=== PATIENT | female | born 1950 | race Caucasian/White ===

== ENCOUNTER 2020-11-14 15:20 | Outpatient (CLI) | payer MEDICARE, BC, SELFPAY ==
--- NOTE | ~2020-11-14 | US_ITS ---
US venous doppler [facility] DATE: 11/14/2020 16:15 INDICATION: Right ankle and foot swelling, erythema, numbness TECHNIQUE: Real-time and color flow imaging and Doppler analysis of the veins of the lower extremitie s COMPARISON: 03/23/2019 venous duplex examination of the lower extremities FINDINGS: The greater saphenous veins are patent. There is spontaneous and phasic flow and normal aug mentation and color flow signal and normal compression of the deep veins of both lower extremities, w ithout evidence of deep venous thrombosis. IMPRESSION: Negative examination; no evidence of deep venous thrombosis of the lower extremities Reviewed, dictated and finalized at Location A. Reviewed, dictated and finalized at location A.
== END 2020-11-14 15:21 | disposition home or self-care (01) ==
PROVIDERS: PCP Family Medicine
DX: I87.2 Venous insufficiency (chronic) (peripheral) (principal); M79.89 Other specified soft tissue disorders
CPT/HCPCS: 93970

== ENCOUNTER 2020-12-04 08:25 | Outpatient (CLI) | payer MEDICARE, BC, SELFPAY ==
--- NOTE | ~2020-12-04 | US_ITS ---
EXAMINATION: US art doppler w press LE BI DATE: 12/04/2020 09:46 CDT INDICATION: Skin changes. Venous insufficiency. TECHNIQUE: Segmental pressures and plethysmographic and Doppler waveforms of the brachial and lower e xtremity arteries were obtained. COMPARISON: None. FINDINGS: Right and left brachial artery pressures of 144 mm Hg and 156 mm Hg, respectively, are concordant (no rmal difference <= 30 mmHg). The right high-thigh pressure index is 1.07 (normal > 1.2). The right ankle-brachial index (HANDY) is 1 .1 (normal >= 0.9-1.0). The right great toe-brachial index (TBI) is 0.59 (normal >= 0.60). The right lower extremity segmental pressure gradients are increased below the ankle (normal gradients <= 20-30 mmHg between adjacent levels on the same leg or the same levels on the two legs). Arterial Doppler w aveforms are biphasic. The left high-thigh pressure index is 1.03. The left HANDY is 1.12. The left TBI is 0.71. The left lowe r extremity segmental pressure gradients are normal. Arterial Doppler waveforms are biphasic. IMPRESSION: 1. Normal bilateral ankle and left toe brachial indices. 2: Mildly diminished right toe brachial index measuring 0.59, consistent with mild peripheral arteria l disease. Reviewed, dictated and finalized at location B. IMPRESSION: 1. Normal bilateral ankle and left toe brachial indices. 2: Mildly diminished right toe brachial index measuring 0.59, consistent with m ild peripheral arterial disease.
== END 2020-12-04 08:26 | disposition home or self-care (01) ==
PROVIDERS: PCP Family Medicine; Visit Provider Nurse Practitioner Family
DX: R23.8 Other skin changes (principal); M79.89 Other specified soft tissue disorders; R20.2 Paresthesia of skin
CPT/HCPCS: 93923

== ENCOUNTER 2021-02-14 10:54 | Outpatient (CLI) | payer MEDICARE, BC, SELFPAY ==
--- NOTE | ~2021-02-14 | XR_ITS ---
EXAMINATION: XR wrist LT w scaphoid EXAM DATE: 02/14/2021 11:12 INDICATION: M25.532 - Pain in left wrist after fall, initial encounter. TECHNIQUE: Left wrist frontal, frontal with ulnar deviation, oblique and lateral projections obtained and reviewed. There is no prior study for comparison. FINDINGS: There is acute closed posttraumatic nondisplaced fracture through the radial styloid extend ing into the radiocarpal joint. This finding has been indicated, marked on the examination for review , clinical correlation. There is overlying soft tissue swelling. Carpal bones are unremarkable. There is moderate left 1st carpometacarpal joint primary osteoarthritis. IMPRESSION: Acute nondisplaced left radial styloid intra-articular fracture. Reviewed, dictated and finalized at location B.
== END 2021-02-14 10:55 | disposition home or self-care (01) ==
LOC: ANHIMG 10:59
PROVIDERS: PCP Physician Assistant; Visit Provider Physician Assistant
DX: M25.532 Pain in left wrist (principal); S52.515A Nondisplaced fracture of left radial styloid process, initial encounter for closed fracture
CPT/HCPCS: 73110

== ENCOUNTER 2023-03-05 14:48 | Outpatient (CLI) | payer MEDICARE, BC, SELFPAY ==
[2023-03-05 15:07] LABS: Basophils Absolute Auto 0.1 K/mm3 (0.0-0.1); Basophils Percent Auto 1.1 % (0.2-1.2); Eosinophils Absolute Auto 0.4 K/mm3 (0-0.3); Eosinophils Percent Auto 4.9 % (0-4.4); Hematocrit 39.3 % (37.0-47.0); Hemoglobin 12.6 g/dL (12.0-15.0); Immature Granulocyte Absolute 0.04 K/mm3 (0.00-0.031); Immature Granulocyte Percent A 0.5 % (0-0.5); Lymphocytes Absolute Auto 1.37 K/mm3 (0.9-3.2); Lymphocytes Percent Auto 16.3 % (18.3-44.2); Mean Corpuscular HGB Conc 32.1 g/dl (32-36); Mean Corpuscular Hemoglobin 28.3 pg (26-34); Mean Corpuscular Volume 88.3 fl (80-100); Mean Platelet Volume 9.6 fl (7.4-10.4); Monocytes Absolute Auto 0.7 K/mm3 (0.1-0.6); Monocytes Percent Auto 8.3 % (2.6-8.5); Neutrophils Absolute Auto 5.8 K/mm3 (1.3-6.7); Neutrophils Percent Auto 68.9 % (45.5-73.1); Platelet Count Result 221 k/mm3 (150-375); Red Blood Count 4.45 M/mm3 (4.2-5.4); Red Cell Distribution Width 13.4 % (11.5-14.5); White Blood Count 8.4 K/mm3 (4.5-10.0)
[2023-03-05 15:15] LABS: Alanine Aminotransferase 18 U/L (6-35); Alkaline Phosphatase 36 U/L (38-126); Anion Gap 4 mmol/L (8-16); Aspartate Amino Transferase 27 U/L (14-36); Bilirubin,Total 0.4 mg/dL (0.2-1.3); Blood Urea Nitrogen 21 mg/dL (7-17); Calcium 8.7 mg/dL (8.4-10.2); Carbon Dioxide 31 mmol/L (22-30); Chloride 96 mmol/L (98-107); Estimated Glomerular Filt Rate > 60; Glucose 93 mg/dL (65-110); Potassium 3.9 mmol/L (3.4-5.0); Sodium 131 mmol/L (137-145)
[2023-03-05 15:39] LABS: SARS-CoV-2 RNA PCR Negative (Negative)
== END 2023-03-05 14:49 | disposition home or self-care (01) ==
PROVIDERS: PCP Family Medicine; Visit Provider Physician Assistant
DX: R10.9 Unspecified abdominal pain (principal); R63.0 Anorexia; R53.83 Other fatigue; Z20.822 Contact with and (suspected) exposure to COVID-19
CPT/HCPCS: 36415; 80053; 85025; 87635

== ENCOUNTER 2025-02-20 13:42 | Outpatient (CLI) | payer MEDICARE, BC, SELFPAY ==
--- OUTSIDE RECORDS SUMMARY | 2025-02-20 15:15 | XMS_ITS | Patient Health Record ---
Author Organization [facility] Address [address] [place] [address] Support Name Relationship Address Phone Unavailable Emergency Contact Unknown Unavailabl e Henrry Germain Guarantor Unknown [phone] Reason For Referral No Information Medications Medication SIG (Take, Route, Frequency, Duration) Notes Start Date End Date Status Synthroid Active Plan Of Treatment Pending Test Test Name Order Date IQecg 07/29/2017 Zofran ODT 8mg 07/29/2017 Insurance Providers Payer Name Payer Address Payer Phone Subscriber Number Group Number Insured Name Patient Relationship to Insured Coverage Start Date Coverage End Date MEDICARE /[facility] [address] [place] [phone] [id number] Henrry Germain Self - patient is the insured [facility] [address] [address] [place], [place] [id number] Henrry Germain Self - patient is the insured Medical (General) History Surgical History Surgery Date(Month/Year) Scoliosis surgery 2005 Hospitalization History Reason Date(Month/Year) see above
--- OUTSIDE RECORDS SUMMARY | 2025-02-20 15:15 | XMS_ITS | Clinical Summary ---
Author Organization [facility] Address [address] [place] [address] Care Team Providers Care Transfer Agent Name Role Phone Malgorzata Baez MD Unavailable [phone] Unknown, Notinfile Primary Care Provider Unavail able Allergies Active Allergy Reactions Criticality Noted Date Comments Nirmatrelvir-Ritonavir Hives,Itching,Tomi h, Other (See comments) Medium 01/27/2022 Other reaction(s): Hives 3 or more Nitrofurantoin Monohyd/M-Cryst Nausea only High 10/01/2020 Penicillins Swelling,Rash,Other (See comments) Medium 07/02/2014 Mild swelling to arm and legs Trazodone Shortness of breath High 07/16/2022 Medications atorvastatin (LIPITOR) 10 mg tablet Take 1 tablet (10 mg total) by mouth as needed 5 Active denosumab (Prolia) 60 mg/mL syringe Inject 1 mL (60 mg total) under the skin every 6 (six) months 02/05/23 last dose Active traMADoL (ULTRAM) 50 mg tablet Take 1 tablet (50 mg total) by mouth every 6 (six) hours as needed for pain For mild/moderate pain 42 tablet 3 Active clobetasoL (TEMOVATE) 0.05 % creamIndications :Contact Dermatitis Apply 1 Application topically as needed DO NOT APPLY TO LEFT HIP SURGICAL INCISION. 30 g 3 Active diclofenac sodium (VOLTAREN) 1 % gel Apply 2 g topically as needed DO NOT APPLY TO LEFT HIP SURGICAL INCISION. 3 Active levothyroxine (SYNTHROID) 75 mcg tablet 3 Active cholecalciferol (Vitamin D3) 1,000 unit capsule Take 1 capsule (1,000 Units total) by mouth daily Active pregabalin (LYRICA) 50 mg capsuleIndicatio ns:Pain of right lower extremity,Fusion of spine of lumbar region,Scoliosis , unspecified scoliosis type, unspecified spinal region Take 1 cap by mouth daily as needed 90 capsule 1 4 Active baclofen (LIORESAL) 10 mg tablet Take 1 tablet (10 mg total) by mouth nightly as needed (headache/neck pain) 90 tablet 4 Active Active Problems Problem Noted Date Diagnosed Date Cervicogenic headache 10/19/2023 Chronic hyponatremia 03/12/2023 Arthritis of left hip 03/11/2023 Primary osteoarthritis of left hip 11/12/2022 Hypothyroidism 10/19/2018 Osteoarthritis of carpometacarpal (CMC) joint of thumb 10/19/2018 High cholesterol 10/19/2018 Senile osteoporosis 10/19/2018 Sciatica 07/26/2018 Chronic low back pain 03/02/2016 Scoliosis 09/07/2013 Resolved Problems Problem Noted Date Diagnosed Date Resolved Date Abscess involving suture 01/24/2019 Single major depressive epis ode, in full remission 10/19/2018 02/09/2022 Smoker 10/19/2018 02/09/2022 H/O scoliosis 07/26/2018 02/09/2022 Pain of right hip joint 07/26/2018 08/02/2022 Primary osteoarthritis of right hip 07/26/2018 02/09/2022 Trochanteric bursitis of right hip 07/26/2018 02/09/2022 Iliac bone pain 08/25/2017 02/09/2022 Immunizations Immunization Administration Dates Next Due Influenza Virus Vaccine Trivalent Mdv 2019 ,04/12/2017 Influenza, Quadrivalent, Spl it, Intramuscular 02/15/2017 Influenza, Trivalent, High D ose, Split, Preservative Free, Intramuscular 04/17/2018,03/28/2016 Influenza, Unspecified 02/26/2021,03/18/2020,06/2016 Pneumococcal Conjugate PCV 13 05/14/2016 Pneumococcal Polysaccharide PPV23 05/27/2017 Surgical History Surgery Date Site/Laterality Comments TONSILLECTOMY ANKLE FRACTURE SURGERY Left SPINAL FUSION Fused C3-S1 due to scoliosis (verified cervical vertebra 3) OTHER STRABISMUS SURGERY 08/12/2017 - 09/11/2017 screws removed from back TOTAL HIP ARTHROPLASTY Right Medical History Medical History Date Comments Osteoporosis Scoliosis Hypothyroidism Alcohol use disorder sober x 38 years Family History Medical History Relation Name Comments Scoliosis Cousin Heart disease Father Hypertension Father Alcohol abuse Maternal Grandfather Heart disease Mother Hypertension Mother Stroke Mother Alcohol abuse Other 1 Scoliosis Other 2 Alcohol abuse Sister 1 Scoliosis Sister 2 Relation Name Status Comments Cousin Father Maternal Grandfather Mother Other 1 Other 2 Sister 1 Sister 2 Social History Tobacco Use Types Packs/Day Years Used Date Smoking Tobacco: Former Cigarettes 0.1 30 1 2014 Smokeless Tobacco: Never Alcohol Use Standard Drinks/Week Comments Not Currently 0 (1 standard drink = 0.6 oz pur e alcohol) AUDIT-C Answer Date Recorded Q1: How often do you have a drink containing alc ohol? Never 10/19/2023 Average Number of Drinks Not on file 024 Frequency of Binge Drinking Not on file 12/2023 PHQ-2 Answer Date Recorded PHQ-2 Total Score (If total score is 3 or more points, staff should administer the PHQ-9) 0 02/09/2022 Personal Safety Answer Date Recorded Have you ever been in or are you currently in a harmful physical or emotional relationship or is someone making you feel afraid or unsafe? 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 [employer] Gender Identity Not on file Sexual Orientation Not on file Obstetrics History Last Filed Vital Signs Vital Sign Reading Time Taken Comments Blood Pressure 126/77 10/19/2023 10:48 AM CDT Pulse 66 10/19/2023 10:48 AM CDT Temperature 36.9 C (98.5 F) 10/19/2023 10:48 AM CDT Respiratory Rate 18 03/12/2023 7:40 AM CDT Oxygen Saturation 100% 03/12/2023 8:30 AM CDT Inhaled Oxygen Concentration - - Weight 45.8 kg (101 lb) 10/19/2023 10:48 AM CDT Height 160 cm (5' 3) 10/19/2023 10:48 AM CDT Body Mass Index 17.89 10/19/2023 10:48 AM CDT Plan of Treatment Health Maintenance Due Date Last Done Comments Hepatitis C Screening 1950 DTaP/Tdap/Td Vaccine (1 - Tdap) 1959 Hepatitis B Screening 1966 Zoster Vaccine (1 of 2) 1998 Well Visit 65+ 2013 Covid-19 Vaccine (3 - Pfizer risk series) 08/21/2020 07/24/2020, 07/03/2020 Osteoporosis Screening-Bone Density Scan 07/15/2022 07/15/2020, 12/09/2018, 05/13/2017 Depression Screening 02/09/2023 02/09/2022 Fall Risk Assessment 03/12/2024 03/12/2023, 02/10/20 Influenza Vaccine (#1) 2025 , 03/18/2020, 2019, Additional history exists Pneumococcal vaccine 65+ Completed 05/27/2017, 06/2015 Breast Cancer Screening-Mammogram Discontinued 06/26/2022, 05/14/2021, 05/14/2021, Additional history exists Medical Devices Implanted Type Area Biometry Teacher Device Identifier Shelf Expiration Date Model / Serial / Lot [employer] Actis Collar Hip 4 High Offset Stem Femoral [id number] - Sna - [id number] Implanted:Qty: 1 on 03/11/2023 by Rustam Rouse MD at [facility] Other - see comments Left: Hip [employer] [id number] 07/14/2032 [id number] / NA / [id number] Description:Implant Pause Pe rformed [employer] Articul/[place] 28mm Cementless Hip +1.5mm 05/27 Taper Head Femoral Latex Free [id number] - Sna - [id number] Implanted:Qty: 1 on 03/11/2023 by Rustam Rouse MD at [facility] Other - see comments Left: Hip [employer] [id number] 12/12/2027 [id number] / NA / [id number] Description:Implant Pause Pe rformed [employer] Cup Acetabular Bi Mentum Od49mm Femoral Proximal Press Fit [id number] - Sna - [id number] Implanted:Qty: 1 on 03/11/2023 by Rustam Rouse MD at [facility] Other - see comments Left: Hip [employer] [id number] 11/12/2027 [id number] / NA / [id number] Description:Implant Pause Pe rformed [employer] Liner Acet Hip Size 28 Poly Bi Mentum Altrx 49mm [id number] - Sna - [id number] Implanted:Qty: 1 on 03/11/2023 by Rustam Rouse MD at [facility] Other - see comments Left: Hip [employer] [id number] 01/11/2027 [id number] / NA / [id number] Description:Implant Pause Pe rformed [employer] [id number] 38mm Modular 2 Mobility Hip D Liner Acetabular - [id number] Implanted:Qty: 1 on 12/27/2018 by Renaldo Canales MD at [facility] Right: Hip [employer] [id number] 04/12/2023 [id number] / / [id number] [employer] 502-03-52d 52mm Primary Hemispherical Cluster Hole D Shell Acetabular - [id number] Implanted:Qty: 1 on 12/27/2018 by Renaldo Canales MD at [facility] Right: Hip [employer] [id number] 04/27/2021 502-03-52D / / [id number] [employer] [id number] Torx 6.5mm 25mm Acetabular Cancellous Screw Bone Titanium - [id number] Implanted:Qty: 1 on 12/27/2018 by Renaldo Canales MD at [facility] Right: Hip [employer] [id number] 07/26/[id number] / / [id number] [employer] [id number] Torx 6.5mm 25mm Acetabular Cancellous Screw Bone Titanium - [id number] Implanted:Qty: 1 on 12/27/2018 by Renaldo Canales MD at [facility] Right: Hip [employer] [id number] 07/26/2023 5935-0309-1 / / [id number] [employer] [id number] Mdm Adm 22.2mm Hip 38d Insert Acetabular X3 Cocr Polyethylene - [id number] Implanted:Qty: 1 on 12/27/2018 by Renaldo Canales MD at [facility] Right: Hip [employer] [id number] 03/16/2023 [id number] / / [id number] [employer]Or tho [id number] 22mm Tapered Hip +0mm 12/14 Head Femoral Oxinium - [id number] Implanted:Qty: 1 on 12/27/2018 by Renaldo Canales MD at [facility] Right: Hip [employer]/ Ortho [id number] 02/27/2027 [id number] / / [id number] [employer]/Or tho [id number] Synergy 13mm 155mm Standard Offset Hip Stem Femoral Titanium - [id number] Implanted:Qty: 1 on 12/27/2018 by Renaldo Canales MD at [facility] Right: Hip [employer]/ Ortho [id number] 03/10/2026 [id number] / / [id number] Procedures Procedure Name Priority Date/Time Associated Diagnosis Comments MAMMOGRAPHY Routine 05/14/2021 DEXA AXIAL SKELETON BONE DENSITY 1 OR MORE SITES Schedule Routine, Read Routine (OP Routine) 12/09/2018 10:56 AM CDT Other specified disorders of bone density and structure, multiple sites Scoliosis, unspecified scoliosis type, unspecified spinal region from Last 3 Months or Most Recently Relevant to Health Maintenance Results * MAMMOGRAPHY (05/14/2021) Mammography Normal Comment:care everywhere 05/14/2021 us Historical Provider HEALTH MAINTENANCE Final Result * Dexa Axial Skeleton Bone Density 1 or 2 Site (12/09/2018 10:56 AM CDT) Anatomical Region Laterality Modality Body N/A Radiographic Luz ging Narrative 12/09/2018 2:39 PM CDT Patient Name: Henrry Germain Date of : 1950 Date of scan: 12/09/2018 Bone mineral density was performed on a [employer] Densitometer. Machine Cross-calibration and Precision studies have been performed with a least significant change of 0.024 g/cm at the spine, 0.020 g/cm at the total proximal femur, and 0.014g/cm at the forearm. HISTORY: This is a 68 y.o. postmenopausal female with a history of osteoporosis thyroid disease and spinal fusion. Currently on treatment with calcium, thyroid hormone, vitamin D. Previously treated with anticoagulants, Forteo, Fosamax, hormone replacement therapy and Prolia. History of tobacco use: Social History Tobacco Use Smoking Status Former Smoker INDICATIONS: Menopause status and history of osteoporosis. FINDINGS: BONE MINERAL DENSITY OF THE PROXIMAL FEMUR Bone Mineral Density (BMD) of the left hip total was found to be 0.633 gm/cm2. This corresponds to a T-score standard deviations from the mean of young adults of -2.5. Femoral neck is 0.598 gm/cm2 with a T-score of -2.3. There is no previous study available for comparison. BONE MINERAL DENSITY OF THE FOREARM Bone Mineral density (BMD) of the left proximal 1/3 of the radius measures 0.633gm/cm2. This corresponds to a T-score standard deviations from the mean of young adults of -1.0. There is no previous study available for comparison. A forearm bone density study was performed due to history of spinal surgery with surgical hardware present. SUMMARY: Bone mineral density shows evidence of osteoporosis and marked increase risk of fracture. ADDITIONAL COMMENTS: If the patient has a history of a fragility fracture, a fracture that occurred with trauma equivalent to a fall from a standing position or less, then the diagnosis is osteoporosis. The risk of osteoporotic fracture increases approximately 2-fold for each 1.0 SD decrease in T-score. However, low bone density is not the only risk factor for fracture. Other factors include patient s age, previous osteoporotic fracture or prior fracture as an adult, loss of height of greater than 2 inches, corticosteroid use, risk of falling, risk of injury, and family history of osteoporosis. Not everyone with low bone mineral density has osteoporosis. Osteomalacia and other metabolic bone disorders should also be considered where indicated. Patients who have osteoporosis should be evaluated for specific diseases and conditions (secondary causes) that may cause or contribute to bone loss. Consider repeating this study in 1-2 years to assess the patient s response to treatment, if applicable. It is recommended that any follow up exam be performed on the same machine if possible for better accuracy. DEFINITIONS: Osteoporosis: BMD at or below -2.5 T-score Osteopenia (low bone mass): BMD between -1.0 and-2.5 T-score. The Bone Health Program adopts the following WHO definitions: Osteoporosis: BMD below -2.5 S.D. as compared to the BMD of young normal adults. Osteopenia or Low Bone Mass: BMD between -1.0 and -2.5 S.D. below the BMD of young normal adults. Normal Bone Density: BMD equal to or greater than -1.0 S.D. as compared to the BMD of young normal adults. References: 1) Ross, Annals of Internal Medicine 114(11): 919-923 (1990) 2) Knight, Lancet 341 : 72-75 (1992) 3) Black, Journal Bone and Mineral Research 7(6): 633-8 (1991) 4) Darby, Journal Bone and Mineral Research 8(10):1227-33 (1992) The history and data sections of the bone mineral density scan were prepared by RT Shorty who is accredited by the International Society of Clinical Densitometry. The overall patient assessment and scan interpretation were performed by Marcela Darby M.D. who is certified by the International Society of Clinical Densitometry. 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
--- NOTE | 2025-03-07 11:59 | WPDHOLTEREM ---
Holter/Event Monitor Holter/Event Monitor Date of procedure: 02/20/25 Holter/Event Procedure: 3-7 Day Holter Monitor Indications: Cardiac arrhythmia Conclusion: 1. 5 days holter monitor on 02/20/25. 2. Predominant rhythm is sinus rhythm. HR range 43-182 bpm; average HR 64 bpm. HR at 43 bpm was on 02/21/25 at 4:15 am. 3. There are frequent premature supraventricular complexes with total burden of 20.7%, occasional supraventricular couplets, and rare supraventricular triplets. There are 13 episodes of supraventricular tachycardia with fastest at 182 bpm and longest lasting 6 beats. 4. There are rare premature ventricular complexes and rare ventricular couplets. No ventricular tachycardia. 5. No significant pauses greater than 3 seconds. 6. Patient reports 24 episodes of symptoms of chest pain, shortness of breath which demonstrate sinus rhythm, HR range 50-89 bpm with 23 episodes with PAC's.
== END 2025-02-20 13:43 | disposition home or self-care (01) ==
PROVIDERS: PCP Family Medicine; Visit Provider Physician Assistant
DX: R94.31 Abnormal electrocardiogram [ECG] [EKG] (principal); I49.9 Cardiac arrhythmia, unspecified; R00.2 Palpitations
CPT/HCPCS: 93242

== ENCOUNTER 2025-03-05 10:35 | Outpatient (CLI) | payer MEDICARE, BC, SELFPAY ==
--- NOTE | 2025-03-05 10:40 | EST_ITS ---
Patient Info Name: Henrry Germain Age: 74 years : 1950 Gender: Female Ht: 63 in Wt: 98 lbs BSA: 1.40 m2 HR: 85 bpm BP: 131 / 99 mmHg Heart Rhythm: Sinus Rhythm Technical Quality: Good Exam Date: 03/05/2025 10:40 AM Patient Status: O Admit Date: 03/05/2025 Exam Type: CA stress test treadmill A treadmill exercise stress test was performed. Staff Attending Provider: Chidi Santiago DO Summary 1. 1. Negative Jean-Pierre exercise stress test for ischemic ST changes by ECG criteria. 2. 2. Good functional capacity, achieving 8.9 METs of workload. 3. 3. Appropriate HR response to exercise. 4. 4. Appropriate HR recovery at 1 minute post exercise. 5. 5. No imaging with stress testing. History/Risk Factors Dyslipidemia: Yes Peripheral Arterial Disease (PAD): Yes Protocol: Jean-Pierre Stress ECG Details Stage: REST Duration (min): 1 min : 14 sec Speed (mph): 0.0 Grade (%): 0 HR (bpm): 83 SBP (mmHg): 131 DBP (mmHg): 99 METS: --- Stage: REST Duration (min): 11 min : 3 sec Speed (mph): 0.0 Grade (%): 0 HR (bpm): 95 SBP (mmHg): 131 DBP (mmHg): 99 METS: --- Stage: STAGE 1 Duration (min): 1 min : 0 sec Speed (mph): 1.7 Grade (%): 10 HR (bpm): 98 SBP (mmHg): 131 DBP (mmHg): 99 METS: --- Stage: STAGE 1 Duration (min): 2 min : 0 sec Speed (mph): 1.7 Grade (%): 10 HR (bpm): 106 SBP (mmHg): 131 DBP (mmHg): 99 METS: --- Stage: STAGE 1 Duration (min): 3 min : 0 sec Speed (mph): 1.7 Grade (%): 10 HR (bpm): 102 SBP (mmHg): 158 DBP (mmHg): 87 METS: --- Stage: STAGE 2 Duration (min): 1 min : 0 sec Speed (mph): 2.5 Grade (%): 12 HR (bpm): 119 SBP (mmHg): 158 DBP (mmHg): 87 METS: --- Stage: STAGE 2 Duration (min): 2 min : 0 sec Speed (mph): 2.5 Grade (%): 12 HR (bpm): 127 SBP (mmHg): 158 DBP (mmHg): 87 METS: --- Stage: STAGE 2 Duration (min): 3 min : 0 sec Speed (mph): 2.5 Grade (%): 12 HR (bpm): 132 SBP (mmHg): 195 DBP (mmHg): 91 METS: --- Stage: STAGE 3 Duration (min): 1 min : 0 sec Speed (mph): 3.4 Grade (%): 14 HR (bpm): 140 SBP (mmHg): 195 DBP (mmHg): 91 METS: --- Stage: STAGE 3 Duration (min): 1 min : 0 sec Speed (mph): 3.4 Grade (%): 14 HR (bpm): 140 SBP (mmHg): 195 DBP (mmHg): 91 METS: --- Stage: RECOVERY Duration (min): 0 min : 59 sec Speed (mph): 0.0 Grade (%): 0 HR (bpm): 113 SBP (mmHg): 195 DBP (mmHg): 91 METS: --- Stage: RECOVERY Duration (min): 1 min : 59 sec Speed (mph): 0.0 Grade (%): 0 HR (bpm): 106 SBP (mmHg): 195 DBP (mmHg): 96 METS: --- Stage: RECOVERY Duration (min): 2 min : 59 sec Speed (mph): 0.0 Grade (%): 0 HR (bpm): 96 SBP (mmHg): 195 DBP (mmHg): 96 METS: --- Stage: RECOVERY Duration (min): 3 min : 59 sec Speed (mph): 0.0 Grade (%): 0 HR (bpm): 92 SBP (mmHg): 187 DBP (mmHg): 98 METS: --- Stage: RECOVERY Duration (min): 4 min : 59 sec Speed (mph): 0.0 Grade (%): 0 HR (bpm): 90 SBP (mmHg): 187 DBP (mmHg): 98 METS: --- Stage: RECOVERY Duration (min): 5 min : 59 sec Speed (mph): 0.0 Grade (%): 0 HR (bpm): 87 SBP (mmHg): 178 DBP (mmHg): 102 METS: --- Stage: RECOVERY Duration (min): 6 min : 59 sec Speed (mph): 0.0 Grade (%): 0 HR (bpm): 87 SBP (mmHg): 161 DBP (mmHg): 102 METS: --- Stage: RECOVERY Duration (min): 7 min : 17 sec Speed (mph): 0.0 Grade (%): 0 HR (bpm): 90 SBP (mmHg): 161 DBP (mmHg): 102 METS: --- Rest HR: 95 bpm Peak HR: 141 bpm Rest Sys BP: 131 mmHg Peak Sys BP: 195 mmHg Max Pred HR: 144 bpm % Max Pred HR: 98 % Target HR: 122 bpm Max RPP: 27,495 bpm*mmHg Murry Score: -2 Target HR Summary: Test terminated after reaching target heart rate (85% max predicted) BP Response: Normal blood pressure response Termination Reason: leg fatigue/has drop foot Cardiac Symptoms: None Max ST Seg Deviation: -1.80 mm Total Time: 7 min : 0 sec Rest Mack BP: 99 mmHg Peak Mack BP: 96 mmHg Angina Score: None Total METS: 8.9 Resting ECG Normal sinus rhythm. Stress ECG No abnormal ST/T wave changes with exercise. Arrhythmias Occasional PVCs. Report Signatures
--- OUTSIDE RECORDS SUMMARY | 2025-03-05 11:43 | XMS_ITS | Patient Health Record ---
Author Organization [facility] Address [address] [place] [address] Support Name Relationship Address Phone Unavailable Emergency Contact Unknown Unavailabl e Henrry Germain Guarantor Unknown [phone] Reason For Referral No Information Medications Medication SIG (Take, Route, Frequency, Duration) Notes Start Date End Date Status Synthroid Active Plan Of Treatment Pending Test Test Name Order Date IQecg 07/29/2017 Zofran ODT 8mg 07/29/2017 Insurance Providers Payer Name Payer Address Payer Phone Subscriber Number Group Number Insured Name Patient Relationship to Insured Coverage Start Date Coverage End Date MEDICARE /[facility] [address] [place] [address] [id number] [id number] Henrry Germain Self - patient is the insured [facility] [address] [address] [place], [place] [id number] Henrry Germain Self - patient is the insured Medical (General) History Surgical History Surgery Date(Month/Year) Scoliosis surgery 2005 Hospitalization History Reason Date(Month/Year) see above
--- OUTSIDE RECORDS SUMMARY | 2025-03-05 11:43 | XMS_ITS | Clinical Summary ---
Author Organization [facility] Address [address] [place] [address] Care Team Providers Care Care Transitions Nurse Name Role Phone Malgorzata Baez MD Unavailable [phone] Unknown, Notinfile Primary Care Provider Unavail able [...] 07/26/2018 02/09/2022 Iliac bone pain 08/25/2017 02/09/2022 Encounters Date Type Department Care Team Description 02/27/2025 7:10 AM CDT Telemedicine [facility] Medicine Orthopaedic Surgery [address] [facility] [address] [place] [address] Rustam Rouse MD 02/21/2025 1:45 PM CDT - 02/21/2025 11:59 PM CDT Hospital Encounter [id number]iology [address] [facility] [address] [place] [address] Aftercare following right hip joint replacement surgery; Aftercare following left hip joint replacement surgery Discharge Disposition: Discharge to home or self care from Last 3 Months Immunizations Immunization Administration Dates Next Due Influenza [...] Smoking Tobacco: Former Cigarettes 0.1 30 1 985 - 2014 Smokeless Tobacco: Never Alcohol Use Standard [...] on file Legal 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 Gender Identity Not on file Sexual Orientation [...] - Pfizer risk series) 08/21/2020 07/24/2020, 07/03/2020 Depression Screening 02/09/2023 02/09/2022 Fall Risk Assessment 03/12/2024 03/12/2023, 02/10/20 22 Influenza Vaccine (#1) 2025 , 03/18/2020, 2019, Additional history exists Osteoporosis Screening-Bone Density Scan 07/27/2026 07/27/2024, 07/15/2020, 12/09/2018, Additional history exists Pneumococcal vaccine 65+ Completed 05/27/2017, 06/2015 Breast Cancer Screening-Mammogram Discontinued 08/02/2024, 08/02/2024, 06/26/2022, Additional history exists Medical Devices Implanted Type Area Aerial Photogrammetrist Device Identifier Shelf Expiration Date Model / Serial / Lot Dep Orthopaed[employer] Inc Actis Collar Hip 4 High Offset Stem Femoral [id number] - Sna - [id number] Implanted:Qty: 1 on 03/11/2023 by Rustam Rouse MD at [facility] Other - see comments Left: Hip [employer] [id number] 07/14/2032 [id number] / NA / [id number] Description:Implant Pause Pe rformed [employer] Articul/[place] 28mm Cementless Hip +1.5mm 12/14 Taper Head Femoral Latex Free [id number] - Sna - [id number] Implanted:Qty: 1 on 03/11/2023 by Rustam Rouse MD at [facility] Other - see comments Left: Hip [employer] [id number] 12/12/2027 [id number] / NA / [id number] Description:Implant Pause Pe rformed [employer] Cup Acetabular Bi Mentum Od49mm Femoral Proximal Press Fit [id number] - Sna - [id number] Implanted:Qty: 1 on 03/11/2023 by Rustam Rouse MD at [facility] Other - see comments Left: Hip [employer] [id number] 11/12/2027 [id number] / NA / [id number] Description:Implant Pause Pe rformed [employer] Liner Acet Hip Size 28 Poly Bi Mentum Altrx 49mm [id number] - Sna - [id number] Implanted:Qty: 1 on 03/11/2023 by Rustam Rouse MD at [facility] Other - see comments Left: Hip [employer] [id number] 01/11/2027 [id number] / NA / [id number] Description:Implant Pause Pe rformed [employer] [id number] 38mm Modular 2 Mobility Hip D Liner Acetabular - [id number] Implanted:Qty: 1 on 12/27/2018 by Renaldo Canales MD at [facility] Right: Hip [employer] [id number] 04/12/2023 [id number] / / [id number] [employer] 502-03-52d 52mm Primary Hemispherical Cluster Hole D Shell Acetabular - [id number] Implanted:Qty: 1 on 12/27/2018 by Renaldo Canales MD at [facility] Right: Hip [employer] [id number] 04/27/2021 502-03-52D / / [id number] [employer] 2039-7165- Torx 6.5mm 25mm Acetabular Cancellous Screw Bone Titanium - [id number] Implanted:Qty: 1 on 12/27/2018 by Renaldo Canales MD at [facility] Right: Hip [employer] [id number] 07/26/20238208-0658-1 / / [id number] [employer] 9030-7110- Torx 6.5mm 25mm Acetabular Cancellous Screw Bone Titanium - [id number] Implanted:Qty: 1 on 12/27/2018 by Renaldo Canales MD at [facility] Right: Hip [employer] [id number] 07/26/2023- / / [id number] [employer] [id number] Mdm Adm 22.2mm Hip 38d Insert Acetabular X3 Cocr Polyethylene - [id number] Implanted:Qty: 1 on 12/27/2018 by Renaldo Canales MD at [facility] Right: Hip [employer] [id number] 03/16/2023 [id number] / / [id number] [employer]Or tho [id number] 22mm Tapered Hip +0mm 12/14 Head Femoral Oxinium - [id number] Implanted:Qty: 1 on 12/27/2018 by Renaldo Canales MD at [facility] Right: Hip [employer]/ Ortho [id number] 02/27/2027 [id number] / / [id number] [employer]Or tho [id number] Synergy 13mm 155mm Standard Offset Hip Stem Femoral Titanium - [id number] Implanted:Qty: 1 on 12/27/2018 by Renaldo Canales MD at [facility] Right: Hip [employer]/ Ortho [id number] 03/10/2026 [id number] / / [id number] Procedures Procedure Name Priority Date/Time Associated Diagnosis Comments XR HIPS BILATERAL W PELVIS 2 VIEW Schedule Routine, Read Routine (OP Routine) 02/21/2025 2:01 PM CDT Aftercare following right hip joint replacement surgery Aftercare following left hip joint replacement surgery MAMMOGRAPHY Routine 05/14/2021 DEXA AXIAL SKELETON BONE DENSITY 1 OR MORE SITES Schedule Routine, Read Routine (OP Routine) 12/09/2018 10:56 AM CDT Other specified disorders of bone density and structure, multiple sites Scoliosis, unspecified scoliosis type, unspecified spinal region from Last 3 Months or Most Recently Relevant to Health Maintenance Results * XR Hips Bilateral 2 Views W Pelvis (02/21/2025 2:01 PM CDT) Anatomical Region Laterality Modality Lower Extremities, Hip, Pelvis Bilateral C omputed Radiography 02/21/2025 2:06 PM CDT Impressions 02/21/2025 2:06 PM CDT Bilateral total hip arthroplasties, in expected position. Electronically signed by: Derian Nicole MD Narrative 02/21/2025 2:06 PM CDT EXAMINATION: XR HIPS BILATERAL 2 VIEWS W PELVIS HISTORY: Hip arthroplasty FINDINGS: 2 views of the hips, with pelvis are submitted for interpretation with comparison radiographs dated 04/21/2023, 03/03/2023. There is a right total hip arthroplasty in unchanged, near-anatomic alignment. There is a left total hip arthroplasty in unchanged, near-anatomic alignment. No evidence of periprosthetic fracture or loosening. Procedure Note Derian Nicole MD - 02/21/2025 EXAMINATION: XR HIPS BILATERAL 2 VIEWS W PELVIS HISTORY: Hip arthroplasty FINDINGS: 2 views of the hips, with pelvis are submitted for interpretation with comparison radiographs dated 04/21/2023, 03/03/2023. There is a right total hip arthroplasty in unchanged, near-anatomic alignment. There is a left total hip arthroplasty in unchanged, near-anatomic alignment. No evidence of periprosthetic fracture or loosening. IMPRESSION: Bilateral total hip arthroplasties, in expected position. Electronically signed by: Derian Nicole MD Rustam Rouse MD IMG XR PROCEDURES Final R esult * HM MAMMOGRAPHY (05/14/2021) Mammography Normal Comment:care everywhere 05/14/2021 Historical Provider HEALTH MAINTENANCE Final Result * Dexa Axial Skeleton Bone Density 1 or 2 Site (12/09/2018 10:56 AM CDT) Anatomical Region Laterality Modality Body N/A Radiographic Luz ging Narrative 12/09/2018 2:39 PM CDT Patient Name: Henrry Germain Date of : 1950 Date of scan: 12/09/2018 Bone mineral density was performed on a HoloBike HUD Discovery Densitometer. Machine Cross-calibration and Precision studies [...] and Mineral Research 7(6): 633-8 (1991) 4) Wilner, Journal Bone and Mineral Research 8(10):1227-33 (1992) The history and data sections of the bone mineral density scan were prepared by RT Shorty who is accredited by the International Society of Clinical Densitometry. The overall patient assessment and scan interpretation were performed by Marcela Darby M.D. who is certified by the International Society of Clinical Densitometry. 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
== END 2025-03-05 10:36 | disposition home or self-care (01) ==
LOC: CHSCARD 10:36
PROVIDERS: PCP Family Medicine; Visit Provider Internal Medicine Cardiovascular Disease
DX: R07.9 Chest pain, unspecified (principal)
CPT/HCPCS: 93017